=== PATIENT | female | born 1930 | race Caucasian/White ===

== ENCOUNTER → 2017-01-30 | Outpatient (CLI) | payer MEDICARE, BC ==
[~2017-01-30] MED LIST: ACETAMINOPHEN650 M4 PO; AMITRIPTYLINE H25 MG PO; AMLODIPINE BESYL5 MG PO; DETROL LA PO; DIOVAN PO; DIOVAN160 MG PO; EXPECTORAN100 MG/52 PO; GABAPENTIN300 MG PO; MIRALAX17 G1 PO; NEURONTIN PO; NEURONTIN300 MG PO; NEXIUM PO; PREDNISONE1 MG PO; ZITHROMAX500 MG PO
--- NOTE | ~2017-01-30 | CT57 ---
[facility] A Service of [facility] RADIOLOGY TEXT RESULTS PATIENT: OLIVIA MCDUFFIE [facility] : [birth year] UNIT #: [id number] AGE: [address]: Marylou Hernández SEX: F ORDER DR: [id number] [facility] [address] [place], [place] [address] [id number] O MR#: [id number] #: [id number] NAME: OLIVIA MCDUFFIE : 1930 SEX: F STUDY DATE/TIME: 01/30/2017 13:19 UNIT: [facility] ROOM: STUDY DESCRIPTION: CT Chest Wo Cont Attending Physician: Marylou Hernández A.P.R.N. Referring Physician: Marylou Hernández A.P.R.N. Ordering Physician: Marylou Hernández A.P.R.N. Primary Care Physician: Deuce Orourke M.D. MEDICAL IMAGING REPORT This report is preliminary unless electronic signature is present EXAM CT of the chest without contrast INDICATION Pneumonia in November. Cough since November. TECHNIQUE CT of the chest was performed without contrast. Coronal and sagittal reformatted images were obtained. Please insert dose reduction statement. This CT exam was performed with one or more of the following radiation dose reduction techniques: automatic exposure control, adjustment of mA and/or kV according to patient size, and iterative reconstruction. COMPARISON 11/22/2016 FINDINGS Stable biapical scarring and bronchiectasis. Small ground-glass infiltrate in the posterior left lower lobe has resolved. Stable background chronic-appearing interstitial fibrotic changes. Stable mildly prominent mediastinal lymph nodes which are likely reactive. Coronary artery calcifications. No pleural effusion. Limited imaging of the upper abdomen demonstrates stable cysts within the liver. Bone windows demonstrate postop changes thoracic spine. IMPRESSION 1. Background chronic-appearing interstitial fibrotic changes are stable. 2. There was a small area of ground-glass opacification in the posterior left lower lobe on the previous study which is now resolved suggesting a resolved infectious process. 3. No new infiltrates. [facility] A Service of [facility] RADIOLOGY TEXT RESULTS PATIENT: OLIVIA MCDUFFIE [facility] : [birth year] UNIT #: [id number] AGE: [address]: Marylou Hernández SEX: F ORDER DR: Dictated by... Michael Wallace M.D. THIS IS AN ELECTRONICALLY VERIFIED REPORT Michael Wallace M.D. at 01/31/2017 9:30 AM [place] TD: 01/31/2017 08:34 JOB #: [id number] MEDICAL IMAGING REPORT Page 1 of 1 COPY
== END | disposition home or self-care (01) ==
LOC: CCAT 12:41
DX: R06.02 Shortness of breath (principal); J98.4 Other disorders of lung
CPT/HCPCS: 71250

== ENCOUNTER → 2017-05-28 | Outpatient (CLI) | payer MEDICARE, BC ==
--- NOTE | ~2017-05-28 | MR113 ---
[facility] A Service of [facility] & [facility] RADIOLOGY TEXT RESULTS PATIENT: OLIVIA MCDUFFIE LOCATION: [facility] : [birth year] UNIT #: [id number] AGE: [address]: Deuce Orourke MD SEX: F ORDER DR: [id number] [facility] [address] [place], [place] [address] [id number] O MR#: [id number] Acc #: [id number] NAME: OLIVIA MCDUFFIE : 1930 SEX: F STUDY DATE/TIME: 05/28/2017 11:32 UNIT: [facility] ROOM: STUDY DESCRIPTION: MR Lumbar Wo Contrast Attending Physician: Deuce Orourke M.D. Referring Physician: Deuce Orourke M.D. Ordering Physician: Deuce Orourke M.D. Primary Care Physician: Deuce Orourke M.D. MRI CENTER REPORT This report is preliminary unless electronic signature is present. EXAM Lumbar spine MRI without HISTORY 86-year-old female with a history of transverse myelitis, numbness in both legs, right leg since 2004 and left leg starting this year. Episode of transverse myelitis in 2004. COMMENT MRI of the lumbar spine was performed without contrast. Patient was scheduled to undergo MRI of the lumbar and thoracic spines with and without contrast but she was unable to complete further imaging. There is comparison study of the lumbar spine from 06/27/2016 with and without contrast. I do not have any prior images of the thoracic spine. Sagittal alignment is normal. Bone marrow signal intensity is normal. Intervertebral discs are desiccated in general with multilevel mild loss of intervertebral disc height. More moderate loss of intervertebral disc height at L4-5 and T11-12. The conus medullaris terminates at T12-L1 and is normal. At T11-12 on sagittal imaging, there is mild concentric disc bulge but no apparent canal stenosis or foraminal compromise. At L1-2, there is minor posterior disc bulging but no canal or foraminal impingement. At L2-3, there is minor posterior disc bulging but no canal stenosis or foraminal impingement. At L3-4, there is mild bilateral facet degenerative change and a mild posterior disc bulge to the left side posterolaterally. Only mild mass effect on the left lateral recess and no central canal stenosis. No STS. [facility] A Service of [facility] & [facility] RADIOLOGY TEXT RESULTS PATIENT: OLIVIA MCDUFFIE LOCATION: [facility] : [birth year] UNIT #: [id number] AGE: [address]: Deuce Orourke MD SEX: F ORDER DR: significant foraminal impingement. At L4-5, mild concentric desiccated disc bulging. Mild bilateral facet degenerative change. Small posterior annular fissure. Mild effacement of the thecal sac but no significant central canal stenosis. Mild right inferior foraminal narrowing. At L5-S1, mild bilateral facet degenerative change worse to the left. Minor posterior desiccated disc bulging. 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 There is no canal stenosis. There is mild foraminal narrowing bilaterally. 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 Probable small right adnexal cysts largest 1.6 cm in dimension. This is partly seen on the previous study. It measures larger on current study where included in the field of view. 1.6 as compared to 1.4 cm. Given the patient's age group and the size measurement, I recommend a followup ultrasound in 1 year to reassess. There is no significant interval change in the appearance of the lumbar spine since the prior. By report, the thoracic lesion was at the level of T9 and is not included in the field of view. The report I have is from 2004 and the films are no longer available. IMPRESSION 1. Essentially stable appearance to the lumbar spine on comparison to a study from 06/27/2016. There is multiple level overall [id number] lumbar degenerative change. There is no evidence for lumbar canal stenosis. 2. There is a 1.6 cm in diameter right adnexal cyst. It measures larger than it did on the study of 2016 and given its size and the patient's age group, I would recommend a followup ultrasound of the pelvis in 1 year. This is still a likely benign lesion. 3. The patient was unable to complete the ordered studies due to difficulty breathing in the MRI scanner. The ordered MRI of the thoracic spine has not yet been obtained. Review of prior report shows that the prior lesion representing transverse myelitis was at the level of T9 and this is not in the field of view currently. Dictated by... Barbara Smith M.D. THIS IS AN ELECTRONICALLY VERIFIED REPORT Barbara Smith M.D. at 05/29/2017 1:51 PM SAC/elsa TD: 05/29/2017 10:37 JOB #: [id number] MRI CENTER REPORT [facility]. [facility] A Service of [facility] & [facility] RADIOLOGY TEXT RESULTS PATIENT: OLIVIA MCDUFFIE LOCATION: [facility] : [birth year] UNIT #: [id number] AGE: [address]: Deuce Orourke MD SEX: F ORDER DR: Page 1 of 1 COPY
[2017-05-28 12:46] LABS: POC - CREATININE 0.73 mg/dL (0.44-1.03); POC - GFR >60.0 mL/min (>60)
== END | disposition home or self-care (01) ==
LOC: CMRI 09:51
PROVIDERS: Family Medicine
DX: G37.3 Acute transverse myelitis in demyelinating disease of central nervous system (principal); M47.896 Other spondylosis, lumbar region; N83.8 Other noninflammatory disorders of ovary, fallopian tube and broad ligament
CPT/HCPCS: 72148; 82565